=== PATIENT | female | born 1970 | race Caucasian/White ===

== ENCOUNTER → 2017-09-17 | Outpatient (CLI) | payer OTHER ==
[~2017-09-17] MED LIST: ASPI-391 PO; B CO PO; VALA1TAB31 PO
[2017-09-17 02:02] LABS: HEMATOCRIT 37.6 % (37-47); MEAN CELL VOLUME 94.5 fL (80-100); MEAN CORPUSCULAR HEMOGLOBIN 31.4 pg (25-34); MEAN CORPUSCULAR HGB CONC 33.2 g/dl (32-36); MEAN PLATELET VOLUME 10.1 fL (7.4-10.4); PLATELET COUNT 231 K/uL (130-400); RED BLOOD COUNT 3.98 M/uL (4.2-5.4); WHITE BLOOD COUNT 4.17 K/uL (4.8-10.8)
== END | disposition home or self-care (01) ==
LOC: C.LAB 00:40
PROVIDERS: ATTEND Obstetrics & Gynecology
DX: N93.9 Abnormal uterine and vaginal bleeding, unspecified (principal)

== ENCOUNTER → 2017-09-24 | Outpatient (CLI) | payer OTHER ==
--- NOTE | 2017-09-24 09:20 | DIAGNOSTIC IMAGING REPORT ---
PELVIC COMPLETE NON OB, TRANSVAG-FEMALE PELVIS CLINICAL HISTORY: 47 years-old Female presenting with ABNORMAL UTERINE BLEEDING. TECHNIQUE: Real-time grayscale and color and spectral Doppler ultrasound imaging of the pelvis was performed first using a transabdominal probe and subsequently transvaginal for better characterization. COMPARISON: 06/11/2015. FINDINGS: Uterus: Normal. Anteverted retroflexed. The uterus measures 9.2 x 4.3 x 4.3 cm. Endometrial stripe measures 10 mm in thickness. Endometrium normal-appearing. Cervix normal. Right adnexa: Right ovary not visualized. Left adnexa: Left ovary not visualized. Other: No free fluid. IMPRESSION: 1. Normal uterus. 2. Nonvisualization of the bilateral ovaries. Electronically signed by: Espinoza Dodge M.D. 09/24/2017 9:19 AM Dictated Date/Time: 09/24/2017 9:17 AM
== END | disposition home or self-care (01) ==
LOC: C.ULTR 07:41
PROVIDERS: ATTEND Obstetrics & Gynecology
DX: N93.9 Abnormal uterine and vaginal bleeding, unspecified (principal)

== ENCOUNTER → 2017-10-08 | Outpatient (CLI) | payer OTHER ==
[~2017-10-08] MED LIST changes: +ACET-1311 PO; +CLR10 PO; +IBUP-1050 PO; +MULT-506 PO; +OXYC-57 PO; +TRIA1SPR4 INTNAS; +VNTHFA/IN INH
--- NOTE | 2017-10-09 14:57 | MAMMOGRAPHY REPORT ---
BILATERAL DIGITAL SCREENING MAMMOGRAM WITH CAD: 10/08/2017 CLINICAL HISTORY: Patient presents for routine screening. S/P bilateral augmentation. TECHNIQUE: Bilateral CC and MLO views of the breasts with and without implant displacement views were obtained. Current study was also evaluated with a Computer Aided Detection (CAD) system. COMPARISON: Comparison is made to exams dated: 07/02/2016 mammogram, 06/15/2015 mammogram, 12/18/2011 ma mmogram, 12/21/2011 mammogram, 02/19/2013 mammogram, and 06/15/2015 ultrasound - [facility]ter. BREAST COMPOSITION: The tissue of both breasts is heterogeneously dense, which may obscure small mas ses. FINDINGS: Bilateral subpectoral silicone implants are stable comparing to prior exams. There are a few stable benign-appearing microcalcifications in the breasts. No new suspicious mass, architectura l distortion or cluster of microcalcifications is seen. IMPRESSION: ACR BI-RADS CATEGORY 1: NEGATIVE There is no mammographic evidence of malignancy. A 1 year screening mammogram is recommended. The pa tient will receive written notification of the results. Approximately 10% of breast cancers are not detected with mammography. A negative mammographic report should not delay biopsy if a clinically suggestive mass is present. Reva Murray M.D. ay/:10/08/2017 15:31:47 Chiropractor Assistant: Jb OWENS(R)(M), [facility] letter sent: Normal 1/2 BI-RADS Code: ACR BI-RADS Category 1: Negative
== END | disposition home or self-care (01) ==
LOC: C.MAMM 14:03
PROVIDERS: ATTEND Obstetrics & Gynecology
DX: Z12.31 Encounter for screening mammogram for malignant neoplasm of breast (principal); Z98.82 Breast implant status

== ENCOUNTER 2018-02-14 05:21 | Day surgery (SDC) | payer OTHER ==
[2018-02-05 14:41] VITALS: Ht 162.6 cm; Wt 61.9 kg
[2018-02-05 15:11] LABS: BASO % 0.4 %; BASO ABS # 0.02 K/uL (0-0.2); EOS % 2.7 %; EOS ABS # 0.15 K/uL (0-0.5); HEMATOCRIT 39.4 % (37-47); HEMOGLOBIN 13.2 g/dL (12.0-16.0); IG# 0.01 K/uL (0.00-0.02); LYMPH % 21.2 %; LYMPH ABS # 1.17 K/uL (1.2-3.4); MEAN CELL VOLUME 92.5 fL (80-100); MEAN CORPUSCULAR HGB CONC 33.5 g/dl (32-36); MEAN PLATELET VOLUME 10.1 fL (7.4-10.4); MONO % 5.4 %; NEUT % 70.1 %; NEUT ABS # 3.86 K/uL (1.4-6.5); PLATELET COUNT 261 K/uL (130-400); RED CELL DISTRIBUTION WIDTH CV 12.7 % (11.5-14.5); RED CELL DISTRIBUTION WIDTH SD 42.8 fL (36.4-46.3); WHITE BLOOD COUNT 5.51 K/uL (4.8-10.8)
--- NOTE | 2018-02-05 15:19 | PAT Medication Instructions ---
Service Date February 05, 2018. Current Home Medication List Albuterol Hfa (Ventolin Hfa), 2 PUFFS INH Q6H PRN for PRN Wsbybsk-Phkisudloqvte-Censogsp (Excedrin Extra Strength), 2 TAB PO prn B-Complex W/ Folic Acid (B-Complex), 1 TAB PO QAM Ibuprofen (Advil), 600 MG PO PRN Loratadine (Claritin), 10 MG PO QAM Triamcinolone Acetonide (Nasal (Nasacort Allergy 24Hr), 1 SPRAY INTNAS PRN Valacyclovir Hcl (Valtrex), 1 GM PO DIRECTED Medication Instructions For Your Scheduled Surgery -Check with your surgeon for instructions for: Tbgcuhc-Qoaenqhdvhggw-Czzklyev (Excedrin Extra Strength), 2 TAB PO prn Ibuprofen (Advil), 600 MG PO PRN - Hold the following medications the morning of surgery: B-Complex W/ Folic Acid (B-Complex), 1 TAB PO QAM Loratadine (Claritin), 10 MG PO QAM - Take the following medications the morning of surgery with a sip of water: Albuterol Hfa (Ventolin Hfa), 2 PUFFS INH Q6H PRN for PRN (if needed, and bring it with you to the hospital) Triamcinolone Acetonide (Nasal (Nasacort Allergy 24Hr), 1 SPRAY INTNAS PRN (if needed) Valacyclovir Hcl (Valtrex), 1 GM PO DIRECTED (if needed) - Take the following medications as scheduled the night before surgery: Albuterol Hfa (Ventolin Hfa), 2 PUFFS INH Q6H PRN for PRN (if needed) Triamcinolone Acetonide (Nasal (Nasacort Allergy 24Hr), 1 SPRAY INTNAS PRN (if needed) Valacyclovir Hcl (Valtrex), 1 GM PO DIRECTED (if needed) If you have any questions please call us at [phone] or [phone] or [phone]
[~2018-02-14] VITALS: Ht 162.6 cm; Wt 61.9 kg
[~2018-02-14 05:21] MED LIST changes: -ACET-1311 PO; -MULT-506 PO; -OXYC-57 PO
[2018-02-14] MEDS ORDERED: MULT-506 PO (05:45)
[2018-02-14] MEDS ORDERED: ACET-1311 PO (05:45)
[2018-02-14 05:50] VITALS: BP 130/74; PULSE 81; TEMP 36.8; O2SAT 98
[2018-02-14] MEDS ORDERED: LACTATED RINGER'S 1000ML 1,000 ML IV SCH ×2 (06:00)
[2018-02-14] MEDS ORDERED: EpHEDrine SULFATE INJ 50 MG/ML AMP IV PRN (06:45)
[2018-02-14] MEDS ORDERED: ONDANSETRON INJ 2 MG/ML 2 ML VIAL IV PRN ×2 (06:45→08:00)
[2018-02-14] MEDS ORDERED: FENTANYL CITRATE INJ 50 MCG/1 ML 2 ML VIAL IV PRN (06:45)
[2018-02-14] MEDS ORDERED: ATROPINE SULFATE 0.1 MG/ML 5ML SYR IV PRN (06:45)
[2018-02-14] MEDS ORDERED: PROPOFOL IV EMULSION 10 MG/ML 20 ML VIAL ONE (06:47)
[2018-02-14] MEDS ORDERED: MIDAZOLAM HCL 1 MG/ML 2ML VIAL ONE (06:47)
[2018-02-14] MEDS ORDERED: LIDOCAINE HCL 2% 2 ML VIAL (20MG/ML) ONE (06:47)
[2018-02-14] MEDS ORDERED: FENTANYL CITRATE INJ 50 MCG/1 ML 2 ML VIAL ONE (06:47)
[2018-02-14] MEDS ORDERED: ACETAMINOPHEN 1000 MG/100 ML IV IV ONE (06:58)
--- NOTE | 2018-02-14 07:07 | History & Physical Bridge Note ---
H&P Re-Evaluation Bridge Note: I have examined the patient, reviewed the History & Physical and in the interval since the performance of the History & Physical I have noted the following changes of clinical significance: No changes noted
[2018-02-14] MEDS ORDERED: DEXAMETHASONE SOD INJ 4 MG/ML VIAL ONE (07:47)
[2018-02-14] MEDS ORDERED: ONDANSETRON INJ 2 MG/ML 2 ML VIAL ONE (07:47)
--- NOTE | 2018-02-14 07:52 | [facility] Post Operative Brief Note ---
Immediate Operative Summary Operative Date February 14, 2018. Pre-Operative Diagnosis abnormal uterine bleeding Post-Operative Diagnosis same Procedure(s) Performed Hysteroscopy D&C Novasure ablation Surgeon Fei Patrol Sergeant Surgeon(s) none Estimated Blood Loss 5 ml. Findings Consistent with Post-Op Diagnosis Fluids (cc crystalloids) 1000 ml. Specimens endometrium Drains None Anesthesia Type General Complication(s) none Disposition Accompanied Pt To Recover: yes Disposition: Recovery Room / PACU Overlapping Procedure I was immediately available: during the entire case
[2018-02-14] MEDS ORDERED: OXYC-57 PO ×2 (07:54→08:05)
[2018-02-14] MEDS ORDERED: KETOROLAC TROMETHAMINE 30 MG/ML VIAL ONE (07:55)
--- NOTE | 2018-02-14 07:56 | Discharge Instructions ---
Discharge Instructions Date of Service February 14, 2018. Admission Reason for Admission: Abnormal Uterine Bleeding Discharge Discharge Diagnosis / Problem: abnormal uterine bleeding Discharge Goals Goal(s): Routine recovery after delivery, Routine recovery after surgery, Continuing MATHEMATICS IMPROVEMENT TEACHER care Activity Recommendations Activity Limitations: per Instructions/Follow-up section Lifting Limitations: gradually increase as tolerated Exercise/Sports Limitations: gradually increase as tolerated May Resume Sexual Activity: after follow-up appointment Shower/Bathe: no limitations Driving or Machine Use: resume 1 day after discharge . Instructions / Follow-Up Instructions / Follow-Up ACTIVITY RECOMMENDATIONS: * Avoid tampons, douching, hot tubs, pools, and intercourse until bleeding has stopped. * May shower as usual. * No strenuous activity for 24-48 hours. After 24-48 hours, you can do anything you feel like doing (driving and sports are okay). RETURN TO SCHOOL/WORK: * You may return to school or work after 24 hours unless specified by your physician. DIET: * Resume previous diet. MEDICATIONS: Resume previous medications unless instructed otherwise by your surgeon. Ibuprofen 200mg 2-3 tablets every 4-6 hours as needed --OR-- Aleve 2 tablets every 8-12 hours as needed for post-operative discomfort Medications are over the counter. Tylenol may be used if above medications are contraindicated or not preferred. Medication should be taken with food or milk. do not take on an empty stomach. SPECIAL CARE INSTRUCTIONS: * Check temperature twice daily for one week. Report any elevation over 101 degrees. * Call office if you experience increased pelvic pain or discomfort not relieved by pain medicine, if you have foul smelling vaginal discharge, if you have bleeding that is heavier than a normal menstrual flow. If you are changing a maxi pad every 1- 2 hours, this is too heavy. vaginal spotting is normal for 1-2 weeks. FOLLOW UP VISIT: Call your doctor's office for a post-operative visit. Current Hospital Diet Patient's current hospital diet: Discharge Diet Recommended Diet: Regular Diet Procedures Procedures Performed: Hysteroscopy D&C Novasure ablation Pending Studies Studies pending at discharge: no Medical Emergencies . Who to Call and When: Medical Emergencies: If at any time you feel your situation is an emergency, please call 911 immediately. . Non-Emergent Contact Non-Emergency issues call your: Primary Care Provider . . "Provider Documentation" section prepared by Wilver Enamorado. .
[2018-02-14] MEDS ORDERED: MoRPHine SULFATE 4 MG/ML 1 ML CARP\\VIAL IV PRN (08:00)
[2018-02-14] MEDS ORDERED: HYDROCODONE/ACETAMIN 5/325MG TAB PO PRN ×2 (08:00)
[2018-02-14] MEDS ORDERED: SODIUM CHLORIDE 0.9% 1000ML 1,000 ML IV SCH (08:00)
[2018-02-14] MEDS ORDERED: OXYCODONE/ACETAMINOPHEN 5-325 TAB PO PRN (08:00)
[2018-02-14 08:40] VITALS: BP 131/62; PULSE 51; TEMP 37; O2SAT 99
[2018-02-14 09:10] VITALS: BP 123/66; PULSE 70; TEMP 36.9; O2SAT 100
--- NOTE | 2018-02-14 09:31 | Anesthesiology Progress Note ---
Anesthesia Post Op Note Date & Time February 14, 2018 at 09:31 Vital Signs Pain Intensity: 0 Vital Signs Past 12 Hours Date Time Temp Pulse Resp B/P (MAP) Pulse Ox O2 Delivery O2 Flow Rate FiO2 02/14/18 09:10 36.9 70 16 123/66 100 Room Air 02/14/18 08:40 37 51 16 131/62 99 Room Air 02/14/18 08:34 36.4 02/14/18 08:25 68 18 129/73 100 Room Air 02/14/18 08:15 64 16 127/75 100 Room Air 02/14/18 08:05 63 16 117/65 100 Oxymask 5 02/14/18 07:55 36.5 77 16 117/54 100 Oxymask 5 02/14/18 05:50 36.8 81 16 130/74 (92) 98 Room Air Notes Mental Status: alert / awake / arousable, participated in evaluation Pt Amnestic to Procedure: Yes Nausea / Vomiting: adequately controlled Pain: adequately controlled Airway Patency, RR, SpO2: stable & adequate BP & HR: stable & adequate Hydration State: stable & adequate Anesthetic Complications: no major complications apparent
--- NOTE | 2018-02-14 09:45 | OPERATIVE REPORT ---
DATE OF OPERATION: 02/14/2018 PREOPERATIVE DIAGNOSIS: Abnormal uterine bleeding. POSTOPERATIVE DIAGNOSIS: Same. PROCEDURES: Hysteroscopy, dilatation and curettage, NovaSure ablation. SURGEON: Wilver Enamorado MD. SUPERVISOR SPINNING: None. ANESTHESIA: General endotracheal. COMPLICATIONS: None. FLUIDS: 1000 mL URINE OUTPUT: 100 mL. CLINICAL HISTORY: The patient is a 47-year-old female who presents for an endometrial ablation due to abnormal uterine bleeding. The patient had an endometrial biopsy in the office which was benign. DESCRIPTION OF PROCEDURE: After satisfactory general endotracheal anesthesia, the patient was prepped and draped in the usual sterile fashion. Catheter was then used to empty the bladder of clear urine. Exam under anesthesia revealed the uterus to be anteverted, with no masses. A weighted speculum was then placed in the posterior vault of the vagina. Single tooth tenaculum was placed on the anterior lip of the cervix. The cervix was then sounded to approximately 9.5 cm. The cervical length was determined to be 5. The cavity length was determined to be 4.5. The cervix was then dilated. Hysteroscope was inserted using saline. The cavity was found to be within normal limits. The hysteroscope was withdrawn. The NovaSure device was then entered into the cavity which was determined to be 3.5, and then, the ablation was set, and using the computer generated ablation, the power setting was found to be 87 in the time. Total time was 1 minute 27 seconds. At the end of the procedure, this was withdrawn. The NovaSure device was intact. The hysteroscope was reinserted, and the contents of the uterine cavity revealed adequate burn with no bleeding. No active bleeding was noted at the end of the procedure. All remaining instruments were then removed. Final sponge and instrument counts were found to be correct. Estimated blood loss 5 mL. The patient was then placed supine on a stretcher and taken to recovery room in stable condition. I attest to the content of the Intraoperative Record and any orders documented therein. Any exception s are noted below.
== END 2018-02-14 09:25 | disposition home or self-care (01) ==
LOC: C.ACU 05:21
PROVIDERS: ATTEND Obstetrics & Gynecology
DX: N93.9 Abnormal uterine and vaginal bleeding, unspecified (principal); J45.909 Unspecified asthma, uncomplicated; Z88.1 Allergy status to other antibiotic agents; Z88.8 Allergy status to other drugs, medicaments and biological substances; Z98.890 Other specified postprocedural states; Z98.51 Tubal ligation status; Z79.899 Other long term (current) drug therapy; Z90.89 Acquired absence of other organs